=== PATIENT | female | born 1945 | race Caucasian/White ===

== ENCOUNTER 2024-02-10 22:49 | Inpatient (IN) | payer OTHER, MEDICAID ==
[~2024-02-10] VITALS: Ht 167.6 cm; Wt 99.8 kg
[2024-02-10 22:54] VITALS: BP 141/57
[2024-02-10 23:14] LABS: BASO % 0.4 % (0.0-1.0); EOS # 0.2 10*3/uL (0.0-0.4); EOS % 3.3 % (1.0-4.0); HEMATOCRIT 39.8 % (37.0-47.0); MEAN CELL VOLUME 96.1 fl (81.0-99.0); MEAN CORPUSCULAR HGB 29.5 pg (27.0-31.0); MEAN CORPUSCULAR HGB CONC 30.7 g/dl (33.0-37.0); MONO # 0.4 10*3/uL (0.1-1.0); MONO % 8.9 % (3.0-9.0); NEUT # 3.1 10*3/uL (2.3-7.9); NEUT % 66.6 % (47.0-73.0); PLATELET COUNT AUTOMATED 148 10*3/uL (130-400); RED BLOOD COUNT 4.14 10*6/uL (4.10-5.10); RED CELL DISTRI WIDTH 14.5 % (0-14.5); WHITE BLOOD COUNT 4.6 10*3/uL (4.8-10.8)
[2024-02-10 23:36] LABS: BUN 11 mg/dl (9-23); CHLORIDE 108 mmol/L (98-107); POTASSIUM 3.9 mmol/L (3.4-5.1)
[2024-02-10 23:37] LABS: ETHYL ALCOHOL < 3.0 mg/dl (<3)
[2024-02-11 00:26] LABS: BILIRUBIN Negative (Negative); BLOOD Negative (Negative); CLARITY Clear (Clear); COLOR Yellow (Yellow); GLUCOSE Negative (Negative); KETONE Negative (Negative); LEUKO ESTERASE 2+ (Negative); NITRITE Positive (Negative); PH 5.5 (4.5-8.0); SPECIFIC GRAVITY 1.015 (1.001-1.030); UROBILINOGEN 0.2 E.U./dl (0.0-1.0)
[2024-02-11 00:39] LABS: BACTERIA 3+; WBC 21-30 wbc/hpf (0-5)
[2024-02-11] MEDS ORDERED: Fosfomycin Tromethamine 3 GM PDS PO ONE (00:40)
[2024-02-11] MEDS ORDERED: TYLENOL EXTRA500 MG PO (01:53)
[2024-02-11] MEDS ORDERED: LIPITOR20 MG PO (01:54)
[2024-02-11] MEDS ORDERED: BUSPIRONE15 MG PO (01:54)
[2024-02-11] MEDS ORDERED: 'KLONOPIN0.5 MG PO (01:55)
[2024-02-11] MEDS ORDERED: DONEPEZIL HCL10 MG PO (01:55)
[2024-02-11] MEDS ORDERED: DRIZALMA SPRINK60 MG PO (01:57)
[2024-02-11] MEDS ORDERED: PEPCID20 MG PO (01:58)
[2024-02-11] MEDS ORDERED: 24 HOUR ALLER15.8 ML NAS (01:59)
[2024-02-11] MEDS ORDERED: MEMANTINE HCL10 MG PO (02:00)
[2024-02-11] MEDS ORDERED: Hydralazine Hyd25 MG PO (02:00)
[2024-02-11] MEDS ORDERED: MILK OF MA400 MG/53 JT (02:02)
[2024-02-11] MEDS ORDERED: TRAMADOL HCL50 MG PO (02:03)
[2024-02-11] MEDS ORDERED: TRAZODONE50 MG PO (02:04)
[2024-02-11] MEDS ORDERED: FOSFOMYCIN TROME3 GM PO (02:31)
[2024-02-11] MEDS ORDERED: LORazepam 1 MG TAB PO ONE (02:55)
[2024-02-11] MEDS ORDERED: HYDROXYZINE HCL25 MG PO (04:38)
[2024-02-11 07:42] VITALS: BP 127/70
[2024-02-11 10:11] VITALS: BP 138/89
[2024-02-11] MEDS ORDERED: LORazepam 1 MG TAB PO PRN (11:05)
[2024-02-11] MEDS ORDERED: Ziprasidone Mesylate 20 MG VIAL IM PRN (11:05)
[2024-02-11] MEDS ORDERED: LORazepam 2 MG/ML VIAL IM PRN (11:05)
[2024-02-11] MEDS ORDERED: ACETAMINOPHEN 325 MG TAB PO PRN (11:10)
[2024-02-11] MEDS ORDERED: MG-AL HYDROXIDE/SIMETICONE 30 ML UDC PO PRN (11:10)
[2024-02-11] MEDS ORDERED: Magnesium Hydroxide 30 ML UDC PO PRN (11:10)
[2024-02-11] MEDS ORDERED: BUDESONIDE 0.5 MG AMP NEB SCH (11:40)
[2024-02-11] MEDS ORDERED: DICLOFENAC SODIUM 100 GM TUBE T SCH (13:00)
[2024-02-11] MEDS ORDERED: clonAZEPAM 0.5 MG TAB PO SCH (16:00)
[2024-02-11] MEDS ORDERED: hydrOXYzine pamoate 25 MG CAP PO PRN (16:45)
[2024-02-11 20:00] VITALS: BP 118/64
[2024-02-11] MEDS ORDERED: FAMOTIDINE 20 MG TAB PO SCH (21:00)
[2024-02-11] MEDS ORDERED: ATORVASTATIN CALCIUM 20 MG TAB PO SCH (21:00)
[2024-02-11] MEDS ORDERED: Memantine Hydrochloride 10 MG TAB PO SCH (21:00)
[2024-02-11] MEDS ORDERED: Mirtazapine 15 MG TAB PO SCH (21:00)
[2024-02-11] MEDS ORDERED: FLUTICASONE PROPIONATE 250 mcg INHALER INH SCH (22:00)
[2024-02-12 07:30] LABS: ALKALINE PHOSPHATASE 112 U/L (46-116); BUN 9 mg/dl (9-23); CHLORIDE 110 mmol/L (98-107); CHOLESTEROL 118 mg/dL (<200); LDL CHOLESTEROL 67 mg/dL (9-159); POTASSIUM 3.9 mmol/L (3.4-5.1); SGPT/ALT 9 U/L (5-49); TOTAL PROTEIN 6.5 gm/dL (6.0-8.0); TRIGLYCERIDES 112 mg/dl (<150)
[2024-02-12 07:56] LABS: VITAMIN D, 25-HYDROXY 16.7 ng/mL (30-100)
[2024-02-12 08:00] VITALS: BP 142/78
[2024-02-12] MEDS ORDERED: Rivastigmine Tartrate 4.6 MG/24 HR PATCH T SCH (09:00)
[2024-02-12] MEDS ORDERED: CYANOCOBALAMIN 1,000 MCG/ML VIAL IM SCH (11:00)
[2024-02-12] MEDS ORDERED: IBUPROFEN 400 MG TAB PO ONE (14:50)
[2024-02-12 20:00] VITALS: BP 121/62
[2024-02-13 07:50] VITALS: BP 144/81
[2024-02-13] MEDS ORDERED: Rivastigmine Tartrate 9.5 MG/24 HR PATCH T SCH (09:00)
[2024-02-13] MEDS ORDERED: Cholecalciferol 5,000 IU CAP (125 MCG) PO SCH (09:00)
[2024-02-13 20:00] VITALS: BP 107/64
[2024-02-13] MEDS ORDERED: CEFDINIR 300 MG CAP PO SCH (21:00)
[2024-02-14 07:50] VITALS: BP 108/70; BP 165/69
[2024-02-14] MEDS ORDERED: MED. FROM HOME 1 EACH EA PO SCH (09:00)
[2024-02-14 20:00] VITALS: BP 123/80
[2024-02-14] MEDS ORDERED: PRIMIDONE 50 MG TAB PO SCH (21:00)
[2024-02-15 08:00] VITALS: BP 108/80
[2024-02-15 20:00] VITALS: BP 134/59
[2024-02-16] MEDS ORDERED: RIVASTIGMINE 13.3 MG/24 HR TDM T SCH (09:00)
[2024-02-16 09:27] VITALS: BP 150/75
[2024-02-16 20:00] VITALS: BP 122/64
[2024-02-17 08:00] VITALS: BP 146/80
[2024-02-17 19:20] VITALS: BP 153/77
[2024-02-17] MEDS ORDERED: PREGABALIN 75 MG CAP PO SCH (21:00)
[2024-02-18 08:38] VITALS: BP 148/77
[2024-02-18 20:00] VITALS: BP 115/56
[2024-02-18] MEDS ORDERED: MED. FROM HOME 1 EACH EA PO SCH (21:00)
[2024-02-18] MEDS ORDERED: PRIMIDONE 50 MG TAB PO SCH (21:00)
[2024-02-19 07:54] VITALS: BP 102/52
[2024-02-19] MEDS ORDERED: LORazepam 0.5 MG TAB PO SCH (13:00)
[2024-02-19 20:00] VITALS: BP 110/68
[2024-02-20 07:36] LABS: BASO % 0.6 % (0.0-1.0); EOS # 0.2 10*3/uL (0.0-0.4); EOS % 2.6 % (1.0-4.0); HEMATOCRIT 43.6 % (37.0-47.0); MEAN CORPUSCULAR HGB CONC 31.9 g/dl (33.0-37.0); MEAN PLATELET VOLUME 10.8 fl (9.6-12.3); MONO # 0.6 10*3/uL (0.1-1.0); MONO % 9.5 % (3.0-9.0); NEUT # 4.4 10*3/uL (2.3-7.9); NEUT % 68.2 % (47.0-73.0); PLATELET COUNT AUTOMATED 206 10*3/uL (130-400); RED BLOOD COUNT 4.79 10*6/uL (4.10-5.10); RED CELL DISTRI WIDTH 14.8 % (0-14.5); WHITE BLOOD COUNT 6.4 10*3/uL (4.8-10.8)
[2024-02-20 08:00] VITALS: BP 125/76
[2024-02-20 08:02] LABS: ALKALINE PHOSPHATASE 132 U/L (46-116); BUN 9 mg/dl (9-23); CHLORIDE 106 mmol/L (98-107); POTASSIUM 4.2 mmol/L (3.4-5.1); SGPT/ALT 11 U/L (5-49); TOTAL PROTEIN 6.9 gm/dL (6.0-8.0)
[2024-02-20 12:03] LABS: BASO % 0.3 % (0.0-1.0); EOS # 0.1 10*3/uL (0.0-0.4); EOS % 1.3 % (1.0-4.0); MEAN CELL VOLUME 92.9 fl (81.0-99.0); MEAN CORPUSCULAR HGB CONC 31.2 g/dl (33.0-37.0); MEAN PLATELET VOLUME 10.1 fl (9.6-12.3); MONO # 0.7 10*3/uL (0.1-1.0); MONO % 8.4 % (3.0-9.0); NEUT # 6.2 10*3/uL (2.3-7.9); NEUT % 78.7 % (47.0-73.0); PLATELET COUNT AUTOMATED 223 10*3/uL (130-400); RED BLOOD COUNT 4.52 10*6/uL (4.10-5.10); RED CELL DISTRI WIDTH 14.6 % (0-14.5); WHITE BLOOD COUNT 7.9 10*3/uL (4.8-10.8)
[2024-02-20 12:14] VITALS: BP 109/49
[2024-02-20 12:31] LABS: POTASSIUM 4.1 mmol/L (3.4-5.1)
[2024-02-20 13:04] LABS: RPR REFLEX CHARGE CHG FOR REFLEX
[2024-02-20 13:30] VITALS: BP 135/59
[2024-02-20 16:06] LABS: Tpa Abs Non Reactive (Non Reactive)
[2024-02-20] MEDS ORDERED: LORazepam 2 MG/ML VIAL IV ONE (17:35)
[2024-02-20] MEDS ORDERED: SODIUM CHLORIDE 0.9% 1,000 ML IV ONE (17:45)
[2024-02-20 19:53] VITALS: BP 136/71
[2024-02-21 08:00] VITALS: BP 149/65
[2024-02-21 10:00] LABS: BUN 12 mg/dl (9-23); CHLORIDE 107 mmol/L (98-107); POTASSIUM 4.1 mmol/L (3.4-5.1)
[2024-02-21] MEDS ORDERED: LORazepam 1 MG TAB PO SCH (13:00)
[2024-02-21 19:51] VITALS: BP 132/53
[2024-02-22 08:00] VITALS: BP 111/58
[2024-02-22 20:00] VITALS: BP 116/53
[2024-02-23 08:00] VITALS: BP 130/57
[2024-02-23] MEDS ORDERED: LORazepam 0.5 MG TAB PO SCH (13:00)
[2024-02-23 20:00] VITALS: BP 144/60
[2024-02-24 08:00] VITALS: BP 123/45
[2024-02-24 20:00] VITALS: BP 124/75
[2024-02-24] MEDS ORDERED: PREGABALIN 75 MG CAP PO SCH (21:00)
[2024-02-25 08:14] VITALS: BP 133/54
[2024-02-25] MEDS ORDERED: VITAMIN D3125 MC1 PO (10:30)
[2024-02-25] MEDS ORDERED: MEMANTINE HCL10 MG PO (10:30)
[2024-02-25] MEDS ORDERED: Mysoline50 MG PO (10:30)
[2024-02-25] MEDS ORDERED: MIRTAZAPINE15 M2 PO (10:30)
[2024-02-25] MEDS ORDERED: LORAZEPAM0.5 M1 PO (10:30)
[2024-02-25] MEDS ORDERED: B121000 MCG/1 IM (10:30)
[2024-02-25] MEDS ORDERED: RIVASTIGMINE1 EAC2 T (10:30)
== END 2024-02-25 14:18 | DRG 885 ==
LOC: ED 22:49 → 3N 02-11 04:18
PROVIDERS: Emergency Medicine; Nurse Practitioner; Registered Nurse; Student in an Organized Health Care Education/Training Program; ADMIT Psychiatry & Neurology Psychiatry; ATTEND Psychiatry & Neurology Psychiatry
PROC: GZHZZZZ Group Psychotherapy (ICD-10-PCS; principal; 2024-02-12)
PROC: GZ51ZZZ Individual Psychotherapy, Behavioral (ICD-10-PCS; 2024-02-12)
DX: F33.2 Major depressive disorder, recurrent severe without psychotic features (principal); N17.9 Acute kidney failure, unspecified; C85.90 Non-Hodgkin lymphoma, unspecified, unspecified site; R45.851 Suicidal ideations; F02.83 Dementia in other diseases classified elsewhere, unspecified severity, with mood disturbance; N39.0 Urinary tract infection, site not specified; E44.0 Moderate protein-calorie malnutrition; F02.811 Dementia in other diseases classified elsewhere, unspecified severity, with agitation; F02.84 Dementia in other diseases classified elsewhere, unspecified severity, with anxiety; Z66 Do not resuscitate; G30.9 Alzheimer's disease, unspecified; M54.12 Radiculopathy, cervical region; M79.7 Fibromyalgia; E78.5 Hyperlipidemia, unspecified; C50.919 Malignant neoplasm of unspecified site of unspecified female breast; K21.9 Gastro-esophageal reflux disease without esophagitis; F41.1 Generalized anxiety disorder; F41.9 Anxiety disorder, unspecified; Z51.5 Encounter for palliative care; Z90.710 Acquired absence of both cervix and uterus; Z80.3 Family history of malignant neoplasm of breast; Z80.1 Family history of malignant neoplasm of trachea, bronchus and lung; Z79.899 Other long term (current) drug therapy; Z68.35 Body mass index [BMI] 35.0-35.9, adult